=== PATIENT | male | born 1965 | race Caucasian/White ===

== ENCOUNTER 2020-04-27 12:31 | Outpatient (CLI) | payer OTHER, MEDICAID, SELFPAY | END 2020-04-27 12:32 | disposition home or self-care (01) | LOC: ANHBWCAUD 12:32 | DX: H90.3 Sensorineural hearing loss, bilateral (principal) | CPT/HCPCS: 92557; 92567 ==

== ENCOUNTER 2023-05-07 08:07 | Outpatient (CLI) | payer MEDICARE, MEDICAID, SELFPAY | END 2023-05-07 08:08 | disposition home or self-care (01) | LOC: ANHBWCAUD 08:08 | PROVIDERS: Visit Provider Family Medicine | DX: H90.3 Sensorineural hearing loss, bilateral (principal) | CPT/HCPCS: 92557; 92567 ==